=== PATIENT | female | born 1970 | race Caucasian/White ===

== ENCOUNTER → 2021-11-18 09:15 | Outpatient (BNVA) | payer OTHER, SELFPAY | PROVIDERS: Family Provider Family Medicine; PCP Family Medicine; Visit Provider Nurse Practitioner Family | DX: R03.0 Elevated blood-pressure reading, without diagnosis of hypertension (principal); Z68.28 Body mass index [BMI] 28.0-28.9, adult; M54.2 Cervicalgia | CPT/HCPCS: 80053; 80061; 84443; 85025 ==

== ENCOUNTER → 2022-05-14 14:51 | Outpatient (BNVA) | payer OTHER, SELFPAY | PROVIDERS: Family Provider Family Medicine; PCP Family Medicine; Visit Provider Nurse Practitioner Family | DX: M25.511 Pain in right shoulder (principal); G89.29 Other chronic pain | CPT/HCPCS: 73030 ==

== ENCOUNTER 2022-06-23 08:44 | Outpatient (CLI) | payer OTHER, SELFPAY ==
--- NOTE | 2022-06-23 08:45 | MR_ITS ---
WS: [id number] EXAMINATION: MR shoulder RT wo con* [id number] ORDER DATE: 06/23/2022 9:42 AM COMPARISON: None. HISTORY: M25.511 - Pain in right shoulder CONTRAST: None. TECHNIQUE: Axial T2 STAR, coronal proton density fat sat, sagittal T2 fat sat, sagittal proton densit y fat sat, axial proton density fat sat, coronal T2 fat sat, and coronal T1 performed. After contrast , axial T1 fat sat, coronal T1 fat sat, and sagittal T1 fat sat were performed. FINDINGS: Moderate degenerative arthritis AC joint with mild edema. Small amount of subacromial/subdeltoid flui d. Slight subacromial spurring. Impingement on the distal supraspinatus. Mild chronic thinning of the distal supraspinatus appears intact. Infraspinatus appears intact. Hermila l subscapularis and teres minor. Biceps tendon is intact within the bicipital groove. Mild degenerative fraying of the glenoid labrum. Normal bone marrow signal in the bony glenoid. Normal biceps labral anchor. Intra-articular biceps t endon appears intact. MR/MR shoulder RT wo con* [id number] IMPRESSION: 1. Moderate degenerative arthritis AC joint with mild edema. Small amount of s ubacromial fluid. 2. Moderate downsloping of the acromium with impingement on the distal suprasp inatus. 3. Mild chronic thinning of the supraspinatus which appears intact. No acute a ppearing rotator cuff tears. 4. Normal biceps tendon in the bicipital groove. Normal biceps labral anchor. 5. No other acute findings.
== END 2022-06-23 08:45 | disposition home or self-care (01) ==
PROVIDERS: PCP Family Medicine; Visit Provider Nurse Practitioner Family
DX: G89.29 Other chronic pain (principal); M25.611 Stiffness of right shoulder, not elsewhere classified; M19.011 Primary osteoarthritis, right shoulder
CPT/HCPCS: 73221